=== PATIENT | male | born 1965 | race African-American/Black ===

== ENCOUNTER 2019-07-01 10:55 | Emergency (ER) | payer OTHER ==
--- NOTE | 2019-07-01 12:32 | ED Physician Documentation ---
PD HPI URI - Stated complaint Stated Complaint: SOA/COUGH/FEVER - Chief complaint Chief Complaint: General - History obtained from History obtained from: Patient - History of Present Illness Timing - onset: How many days ago (2-3 days of left maxillary and periorbital pressure and sore throat, purulent nasal drainage and traces of blood at times. Had had some clear rhinorrhea and congestion for a week or so prior, thought allergies.) Timing duration: Days (2-3 days of worse symptoms.) Timing details: Gradual onset Associated symptoms: Nasal congestion, Sinus pain (left), Sore throat. No: Fever, Dry cough, Dyspnea, NVD Contributing factors: No: Sick contact, Travel, Immunocompromised Similar symptoms before: Has not had sx before Review of Systems Constitutional: denies: Fever, Chills Eyes: denies: Loss of vision, Photophobia Nose: reports: Rhinorrhea / runny nose, Congestion, Sinus pressure / pain Throat: reports: Sore throat Respiratory: denies: Cough GI: denies: Nausea, Vomiting, Diarrhea Skin: denies: Rash Neurologic: reports: Headache (left frontal and periorbital area). denies: Focal weakness, Numbness, Altered mental status PD PAST MEDICAL HISTORY - Past Medical History Cardiovascular: None Respiratory: None Neuro: None Endocrine/Autoimmune: None - Present Medications Home Medications: Ambulatory Orders Medication Instructions Recorded Confirmed Benzonatate [Tessalon Perle] 100 - 200 mg PO TID PRN #30 capsule 07/01/19 Doxycycline Monohydrate 100 mg PO BID #14 tablet 07/01/19 dexAMETHasone [Decadron] 4 mg PO DAILY #5 tablet 07/01/19 - Allergies Allergies/Adverse Reactions: Allergies Allergy/AdvReac Type Severity Reaction Status Date / Time No Known Drug Allergies Allergy Verified 07/01/19 11:06 - Living Situation Living Situation: reports: With spouse/s.o. Living Arrangement: reports: At home PD ED PE NORMAL - Vitals Vital signs reviewed: Yes - General General: Alert and oriented X 3, No acute distress, Well developed/nourished - HEENT HEENT: Ears normal, Moist mucous membranes, Pharynx benign, Other (left maxillary and frontal area tender to percussion. ) - Neck Neck: Supple, no meningeal sign, Other (mild anterior adenopathy) - Cardiac Cardiac: RRR, No murmur - Respiratory Respiratory: Clear bilaterally - Derm Derm: Normal color, Warm and dry, No rash - Neuro Neuro: Alert and oriented X 3, No motor deficit, Normal speech Results - Vitals Vitals: Vital Signs - 24 hr 07/01/19 07/01/19 07/01/19 11:06 11:57 14:07 Temperature 36.5 C 36.6 C Heart Rate 67 86 76 Respiratory 18 18 16 Rate Blood Pressure 178/124 H 178/98 H 145/95 H O2 Saturation 97 98 98 Oxygen O2 Source Room air - Labs Labs: Laboratory Tests 07/01/19 12:51 Influenza A (Rapid) Negative Influenza B (Rapid) Negative PD MEDICAL DECISION MAKING - ED course Complexity details: reviewed results (he wants to know if okay to work. Has some URI symptoms and neg flu test, no COVID exposure risk categories. His main symptoms seem sinusitis. So should be minimally contagious (URI symptoms). ), considered differential (sounds URI initially, but with focal sinus symptoms and purulent drainage now concerning for bacterial transformation. ), d/w patient Departure - Departure Disposition: 01 Home, Self Care Clinical Impression: Sinusitis, acute Qualifiers: Sinusitis location: maxillary Recurrence: non-recurrent Qualified Code(s): J01.00 - Acute maxillary sinusitis, unspecified Upper respiratory infection Qualifiers: URI type: unspecified URI Qualified Code(s): J06.9 - Acute upper respiratory infection, unspecified Condition: Stable Record reviewed to determine appropriate education?: Yes Instructions: ED Sinusitis Abx Tx Prescriptions: Benzonatate [Tessalon Perle] 100 - 200 mg PO TID PRN #30 capsule PRN Reason: Cough dexAMETHasone [Decadron] 4 mg PO DAILY #5 tablet Doxycycline Monohydrate 100 mg PO BID #14 tablet Comments: Your flu test is negative. I presume a viral type illness. I also sounds like likely a sinus infection and this may be bacterial. Stay well-hydrated. Tylenol ibuprofen for fevers and pains. Doxycycline antibiotic twice daily for a week. Tessalon if needed for cough. Decadron for inflammation of the bronchials and sinuses. Off work today. It is okay to resume work if feeling well enough. Return if more worsening symptoms. Forms: Activity restrictions Discharge Date/Time: 07/01/19 14:09
[2019-07-01] MEDS ORDERED: CHERRY SYRUP 10 ML UDC PO ONE (13:12)
[2019-07-01] MEDS ORDERED: DOXYCYCLINE 100 MG TABLET PO STA (13:12)
[2019-07-01] MEDS ORDERED: BENZONATATE 100 MG CAPSULE PO STA (13:12)
[2019-07-01] MEDS ORDERED: DEXAMETHASONE 10 MG/ML VIAL PO STA (13:12)
[2019-07-01 14:09] VITALS: BP 145/95
== END 2019-07-01 14:09 | disposition home or self-care (01) ==
LOC: ED 10:55
DX: J01.00 Acute maxillary sinusitis, unspecified (principal); J06.9 Acute upper respiratory infection, unspecified
CPT/HCPCS: 87275; 87276; 99283; A9270

== ENCOUNTER 2019-07-07 07:45 | Emergency (ER) | payer OTHER ==
[2019-07-07] MEDS ORDERED: METOCLOPRAMIDE 10 MG/2 ML VIAL IVP STA (08:01)
--- NOTE | 2019-07-07 08:03 | ED Physician Documentation ---
PD HPI NVD - Stated complaint Stated Complaint: VOMITING/RAMAN - History obtained from History obtained from: Patient - History of Present Illness Timing - onset: Today (53-year-old gentleman who lives out of the area but is here or working was seen about a week ago with sinus congestion and prescribed doxycycline, Decadron and Tessalon. He was doing okay but then suddenly this morning on his way to work while he was driving he developed dizziness which is worse if he turns his head. Feels like a spinning. He became very nauseous and vomited several times. Subsequently developed a headache, but feels like the headache is secondary to the vomiting not primary. He says he had a remote history of migraines "after [place]." But none recently. He denies light sensitivity or sound sensitivity.) Review of Systems Ten Systems: 10 systems reviewed and negative Constitutional: denies: Fever, Chills Ears: denies: Loss of hearing, Ear pain, Drainage/discharge Nose: reports: Rhinorrhea / runny nose Throat: denies: Sore throat Respiratory: denies: Dyspnea, Cough PD PAST MEDICAL HISTORY - Past Medical History Cardiovascular: None Respiratory: None Neuro: None Endocrine/Autoimmune: None - Present Medications Home Medications: Ambulatory Orders Medication Instructions Recorded Confirmed Benzonatate [Tessalon Perle] 100 - 200 mg PO TID PRN #30 capsule 07/01/19 07/07/19 Doxycycline Monohydrate 100 mg PO BID #14 tablet 07/01/19 07/07/19 - Allergies Allergies/Adverse Reactions: Allergies Allergy/AdvReac Type Severity Reaction Status Date / Time No Known Drug Allergies Allergy Verified 07/07/19 08:10 PD ED PE NORMAL - Vitals Vital signs reviewed: Yes - General General: Alert and oriented X 3, No acute distress - HEENT HEENT: PERRL, EOMI, Other (Very mild nystagmus on leftward gaze) - Neck Neck: Supple, no meningeal sign, No bony TTP - Cardiac Cardiac: RRR, No murmur - Respiratory Respiratory: No respiratory distress, Clear bilaterally - Abdomen Abdomen: Normal bowel sounds, Soft, Non tender - Back Back: No CVA TTP, No spinal TTP - Derm Derm: Normal color, Warm and dry - Neuro Neuro: Alert and oriented X 3, No motor deficit, No sensory deficit, Normal speech, Other (Normal [id number] and [id number] testing, positive [place]- Hallpike test.) Eye Opening: Spontaneous Motor: Obeys Commands Verbal: Oriented GCS Score: 15 - Psych Psych: Normal mood, Normal affect Results - Vitals Vitals: Vital Signs - 24 hr 07/07/19 08:04 Temperature 36.8 C Heart Rate 77 Respiratory 16 Rate Blood Pressure 188/113 H O2 Saturation 97 Oxygen O2 Source Room air - Labs Labs: Laboratory Tests 07/07/19 07/07/19 08:10 08:10 WBC 6.8 RBC 5.46 Hgb 15.5 Hct 45.9 MCV 84.1 MCH 28.4 MCHC 33.8 RDW 13.2 Plt Count 287 MPV 10.1 Neut # (Auto) 3.9 Lymph # (Auto) 2.0 [place] # (Auto) 0.6 Eos # (Auto) 0.3 Baso # (Auto) 0.0 Absolute Nucleated RBC 0.00 Nucleated RBC % 0.0 Sodium 136 Potassium 3.6 Chloride 102 Carbon Dioxide 24 Anion Gap 10.0 BUN 21 H Creatinine 0.7 Estimated GFR (MDRD) 142 Glucose 147 H Calcium 9.2 Total Bilirubin 0.6 AST 17 ALT 18 Alkaline Phosphatase 73 Total Protein 7.7 Albumin 4.1 Globulin 3.6 Albumin/Globulin Ratio 1.1 Lipase 46 - Rads (name of study) Ct Head Radiology: EMP read contemporaneously (NAD x sinus dz) PD MEDICAL DECISION MAKING - ED course ED course: 53-year-old gentleman with what sounds like peripheral vertigo related to a sinus infection. Feeling somewhat better after Reglan. No evidence of subarachnoid hemorrhage or stroke. Departure - Departure Disposition: 01 Home, Self Care Clinical Impression: Vertigo Sinusitis Qualifiers: Sinusitis location: maxillary Chronicity: acute Recurrence: non-recurrent Qualified Code(s): J01.00 - Acute maxillary sinusitis, unspecified Condition: Good Record reviewed to determine appropriate education?: Yes Instructions: Meclizine, ED Vertigo Unspecified Comments: You can take Dramamine [id number] as needed for your symptoms. Return for new or worsening symptoms or if not better in 24 hours. Forms: Activity restrictions
[2019-07-07 08:18] LABS: BASOPHILS % (AUTO) 0.3 %; EOSINOPHILS # (AUTO) 0.3 10^3/uL (0.0-0.7); EOSINOPHILS % (AUTO) 3.7 %; HGB - HEMOGLOBIN 15.5 g/dL (14.0-18.0); LYMPHOCYTES % (AUTO) 29.8 %; MEAN CORPUSCULAR HEMOGLOBIN 28.4 pg (27.0-31.0); MEAN CORPUSCULAR HGB CONC 33.8 g/dL (32.0-36.0); MEAN CORPUSCULAR VOLUME 84.1 fL (80.0-94.0); MEAN PLATELET VOLUME 10.1 fL (7.4-11.4); MONOCYTES # (AUTO) 0.6 10^3/uL (0.0-1.0); MONOCYTES % (AUTO) 8.2 %; NEUTROPHILS # (AUTO) 3.9 10^3/uL (1.5-6.6); NEUTROPHILS % (AUTO) 57.3 %; PLT - PLATELET COUNT 287 10^3/uL (130-450); RED BLOOD COUNT 5.46 10^6/uL (4.70-6.10); RED CELL DISTRIBUTION WIDTH 13.2 % (12.0-15.0); WHITE BLOOD COUNT 6.8 x10^3/uL (4.8-10.8)
[2019-07-07 08:29] LABS: ALBUMIN 4.1 g/dL (3.2-5.5); ALBUMIN/GLOBULIN RATIO 1.1 (1.0-2.2); BILIRUBIN,TOTAL 0.6 mg/dL (0.2-1.0); CALCIUM 9.2 mg/dL (8.5-10.3); CREATININE 0.7 mg/dL (0.6-1.2); TOTAL PROTEIN 7.7 g/dL (6.7-8.2)
--- NOTE | 2019-07-07 09:02 | CT Report ---
Reason: vertigo/headache Procedure Date: 07/07/2019 Accession Number: [id number] / [id number] Procedure: CT - HEAD WO CPT Code: Final Report FULL RESULT: EXAM: CT HEAD EXAM DATE: 07/07/2019 08:30 AM. CLINICAL HISTORY: Vertigo/headache. COMPARISON: None. TECHNIQUE: Multiaxial CT images were obtained from the foramen magnum to the vertex. Reformats: Sagittal and coronal. IV contrast: None. In accordance with CT protocol optimization, one or more of the following dose reduction techniques were utilized for this exam: automated exposure control, adjustment of mA and/or KV based on patient size, or use of iterative reconstructive technique. FINDINGS: Parenchyma: No intraparenchymal hemorrhage. No evidence of mass, midline shift, or CT findings of infarction. Ybarra-white differentiation is distinct. Extraaxial Spaces: Normal for age. No subdural or epidural collections identified. Ventricles: Normal in size and position. Sinuses and Orbits: Mucosal thickening and opacification scattered throughout the ethmoid air cells. The right sphenoid sinus is totally opacified, with mild mucosal thickening of the anterior left sphenoid sinus. The frontal sinuses appear clear. The minimally imaged maxillary sinuses appear clear. The imaged portions of the soft tissue components of the orbits appear symmetric and within normal limits. Bones: No evidence of fracture or calvarial defect. Other: None. IMPRESSION: No acute intracranial hemorrhage or mass-effect detected. Partial opacification of the facial sinuses. If symptoms persist, follow-up MRI or CTA may be helpful for further evaluation. [facility]
[2019-07-07 09:18] VITALS: BP 138/98
== END 2019-07-07 09:21 | disposition home or self-care (01) ==
LOC: ED 07:45
DX: J01.00 Acute maxillary sinusitis, unspecified (principal)
CPT/HCPCS: 36415; 70450; 80053; 83690; 85025; 96374; 99284; J2765